=== PATIENT | male | born 1985 ===

== ENCOUNTER 2023-01-31 09:10 | Day surgery (SDC) | payer OTHER, SELFPAY ==
--- NOTE | 2023-01-30 22:22 | W.PM.HP.N ---
Date of service: 01/31/23 Time of Service: 10:09 Assessment and Plan Assessment and plan (1) Drug-induced constipation with proper administration: Status: Acute (2) Right inguinal hernia: Status: Acute (3) Adjustment disorder with depressed mood: (4) Opioid use disorder: (5) PTSD (post-traumatic stress disorder): Assessment and plan: I discussed the nature of inguinal hernias with the pt and how they form, and consequences of incarceration.? We discussed the warning signs of incarcerations (Severe pain/hardness and inability to reduce the hernia/vomiting/redness and fever) ?and when/how to seek medical attention (our office/PCP or ED).? ?I discussed the surgery in detail and the complications related to the surgery and the anesthesia.? I do recommend that the pt have a nerve block for postop pain control.? We also discussed multi-modality pain management.? Pt. expressed understanding; all questions were answered to the patient satisfaction and they do wish to proceed with surgery.? Risks of the surgery include but are not limited to:Bleeding/infection/pneumonia/damage to blood vessels or bladder or?bowels/blood clots or PE/chronic pain/urinary retention/chronic numbness/reoccurrence/reaction to mesh requiring removal/damage to testicle or sterility/complications of anesthesia.?We also discussed the possibility of postop urinary retention or bruising. ?The procedure will be done with abx and under sterile conditions. This is an outpt day surgery.? Arrangements will be made with the [facility] for surgery. (3) Opioid use disorder: Chronic Suboxone therapy (4) Adjustment disorder with depressed mood: (5) Drug-induced constipation with proper administration: Plan - Senna twice daily/Colace twice daily.? Increase MiraLAX twice daily and change Colace to Dulcolax. ? Consider using naloxegol as a rescue agent to avoid straining.? If he is straining to move his bowels after his hernia repair he will blow out his hernia repair History of Present Illness Narrative: Today 01/31 No changes in medications or health status. Patient is on Suboxone for chronic opioid abuse. Patient is still incarcerated. He has not had any pain or difficulty with hernia. Patient states his bowels are more regular. The site is marked. All questions were answered to the patient's satisfaction. RN: Pt here with [facility] for [facility] that he has had for over a year, today he denies pain, states only bothers with lifting. Referral notes reviewed.? Patient was recently in the [place] ER on 10/13/2022 with complaints of right lower quadrant pain.? He does have a known moderate-sized right inguinal hernia.? The hernia was easily reduced by ER staff.? He did have a CT scan which shows fluid-filled dilated small bowel with gradual transition point within the right lower quadrant and trace abdominal fluid.? Patient is not in a position to be doing any strenuous activity or her or heavy lifting.? He does admit to having to strain to move his bowels ? Now that he is on Suboxone.? The hernia was present prior to incarceration. Patient has been having constipation from subxone.? He is on daily MiraLAX and Colace 100 mg twice daily, and senna twice daily .? He still says he has constipation and straining to go to the bathroom.? We do need to get this remedied prior to any hernia repairs, otherwise if he is straining to go to the bathroom the repair would be unsuccessful smoker- 1ppd DM- no NC/CVA- no etoh- no pshx ear surgery and finger surgery anaesthesia- no comp Review of Systems All systems reviewed & are unremarkable except as noted in HPI and below PFSH All Active Problems Drug-induced constipation with proper administration (Acute) Right inguinal hernia (Acute) Medical History Adjustment disorder with depressed mood Opioid use disorder PTSD (post-traumatic stress disorder) Social History Smoking/Tobacco Use Status: Never Smoking risk assessment performed?: Yes Alcohol Intake: former Substance use type: former substance user Details: 01/31/23: 16mg suboxone at 08:45am Housing: other Additional Social history: Corrections Meds Allergies and Home Medications Allergies Allergy/AdvReac Type Severity Reaction Status Date / Time No Known Allergies Allergy Verified 01/31/23 09:49 Home Medications Medication Instructions Recorded Confirmed Type buprenorphine 8 mg-naloxone 2 mg 2 film buccal DAILY 12/08/22 01/31/23 History sublingual film (Suboxone) docusate sodium 100 mg capsule 100 mg PO BID 12/08/22 01/31/23 History ibuprofen 200 mg capsule 600 mg PO Q6H PRN 12/08/22 01/31/23 History mirtazapine 30 mg tablet 30 mg PO DAILY 12/08/22 01/31/23 History sennosides 8.6 mg capsule (senna) 8.6 mg PO BID 12/08/22 01/31/23 History polyethylene glycol 3350 17 17 g PO BID #510 grams 12/12/22 01/31/23 Rx gram/dose oral powder (Miralax) Exam Narrative Exam Narrative: PHYSICAL EXAM GENERAL APPEARANCE: Alert, healthy appearance, oriented, x 3,? in no acute distress HYDRATION: Well hydrated HEAD, EYES, EARS, NECK, THROAT: Head is normocephalic, pupils equal, round, reactive to light and accommodation, ocular movement intact, sclera clear and no jaundice. ?Dentition intact. No sore throat.? No jaw pain. No thrush When she did LUNGS: normal respiration/normal chest excursion. ?Clear to auscultation bilaterally. ?No wheeze. ?HEART: Regular rate and rhythm. no murmurs ? ABDOMEN: soft and non-tender to palpation.? Normal bowel sounds.? Time Spent Time spent with Patient: <40 minutes Time was spent: preparing to see the patient(eg.review tests), obtaining and/or reviewing separately otained hiistory, ordering medications,tests, procedures, referring, communicating with other health manager home healthcare, indepentently interpreting results, counseling the patient and care coordination
--- NOTE | 2023-01-30 22:25 | W.PM.OP ---
Date of service: 01/31/23 Time of Service: 12:11 Operative Note Operative Note DATE OF PROCEDURE: 01/31/23 PRE-OP DIAGNOSIS: [facility] POST-OP DIAGNOSIS: same (indirect) PROCEDURE: Open right inguinal hernia with mesh SURGEON: Giulia High ASSISTING SURGEON: Naila Ayala ANESTHESIA TYPE: Local By Surgeon, General:No Airway and Primary Nerve Block Refer to Anesthesia Record ESTIMATED BLOOD LOSS: 5 PATHOLOGY: none sent COMPLICATIONS: None Patient was transported to: PACU Patient's condition: stable Procedure Description: INDICATIONS: The pt is here today for surgery regarding symptomatic --- inguinal hernia that has failed outpatient conservative medical management and he is here today for repair. Informed consent was obtained, explaining risks and benefits of the procedure including but not limited to bleeding, infection, pneumonia, blood clots, chronic pain, chronic numbness, damage to testicle resulting in removal, recurrence of hernia, reaction to Mesh necessitating removal, and other unforetold complications, and complications of anesthesia-which were addressed by the COMMUNICATION ASSISTANT. The patient is marked in preOp prior to the procedure DESCRIPTION OF PROCEDURE:? The pt is then brought to the operative room suite. Anesthesia was administered per the Department of Anesthesia. ?A nerve block was performed by anesthesia under US guidance. The patient was prepped and draped in the usual sterile fashion using ChloraPrep scrub solution. Pause for the cause was done. He did receive preop IV antibiotics, and 30 mL of .25% Marcaine w/ epinephrine was used for local anesthetization. A #12 blade was used to make an incision over the external ring. Electrocautery used to provide hemostasis and dissect down to the fascia. The fascia was pretty much obliterated and there was nothing to open. The cord is elevated. The nerve was not identified. There is a small cord lipomas.? Electro-cautery is used to provide hemostasis. A Ranjana drain was placed around the cord to assist in mobilization. The cord was explored. ?There was is large hernia sac on the cord. There is no direct hernia pushing through the floor. The hernia sac is dissected off the cord using a combination of blunt dissection and electrocautery.? Electrocautery is used to provide hemostasis.?? There are no contents within the hernia sac.? The hernia sac is than inverted and returned to the abdominal cavity.? A XL size plug is than inserted into the defect through the internal ring, and over sewn to tighten up the ring with 2-0 vicryl.? Please see RN notes from Lot number of the [employer] mesh patch/plug.? The cord structures are still able to freely move through the ring itself.? The patch was then placed onto the floor, and using 2-0 Vicryl, sewn into the pubic tubercle and the shelving portions of the inguinal ligament, in the standard Lichenstein fashion.? ?The tails of the mesh are brought around the cord, sewn together w/ 2-0 Vicryl, and tucked under the external oblique.? The wound was copiously irrigated. There was no bleeding noted. The drain was removed. All structures are returned to normal anatomical position. The nerve is not sewn into the mesh, nor caught up in any sutures. The external oblique is re-approximated using 2-0 vicryl in a running fashion. ?Deep tissue was approximated with 3-0 Vicryl in a running fashion, and skin was approximated with 4-0 Monocryl in a running subcuticular fashion. Skin glue and sterile dressings are applied. The patient tolerated the procedure without complications to recovery in stable condition. GIULIA HIGH, DO
--- NOTE | 2023-01-30 22:26 | PDOC.DSDIS_ITS ---
Date of service: 01/31/23 Time of Service: 12:16 Discharge Plan Disposition Patient Disposition: Home Condition: Good Discharge Details Reason For Visit: Right inguinal hernia repair Attending Provider: Giulia Xiao Primary Care Provider: Unknown,Unknown Home Meds and New Rx's Prescriptions: New methocarbamol 750 mg tablet 750 mg PO QID PRNQty: 30 0RF Continued polyethylene glycol 3350 [Miralax] 17 gram/dose powder 17 g PO BID Qty: 510 0RF buprenorphine-naloxone [Suboxone] 8-2 mg film 2 film buccal DAILY Rx Instructions: place 1 film on inside of (each) cheek ibuprofen 200 mg capsule 600 mg PO Q6H PRN mirtazapine 30 mg tablet 30 mg PO DAILY senna 8.6 mg capsule 8.6 mg PO BID docusate sodium 100 mg capsule 100 mg PO BID Discharge Instructions Additional Instructions: Dr. Xiao HERNIA REPAIR ? POSTOPERATIVE INSTRUCTIONS Patients who have this type of surgery can usually be expected to return to work within two weeks and have minimal amounts of discomfort. ? ACTIVITY: The day of surgery should be spent resting. However, you can be up for short periods of time, I.E., going to the bathroom or kitchen. Avoid lifting or straining. On the day following surgery, you can be up and about as desired. ? LIFTING: Restrict your lifting to no more than five (5) pounds for two weeks after surgery. ??We will decide when you are done with restrictions and when you can return to work, at your follow-up appointment.? No sexual activity for two weeks.? ? DIET: There are no dietary restrictions following surgery. However, you may want to start with small amounts of liquids to avoid nausea the day of surgery. ? INCISION CARE: You will notice purple skin glue closing the incision.? Do not peel this off- it will wear off on its own.? After 24 hours you may shower. The dressing may be replaced for comfort, but is not necessary. ?An ice bag may be applied to the incision for 72 hours following surgery. ? SIGNS OF INFECTION: It is not unusual to have some black and blue discoloration of the skin around the incision, but also scrotum and penis.? ?It will slowly disappear. If you have any increased redness, drainage, fever (above 100 degrees), please contact your doctor for an examination. ? DISCOMFORT: You may expect to have some mild discomfort at the incision sight. If severe pain develops you should contact your doctor for further instructions. ? URINATION: Patients who have surgery occasionally have problems urinating. If you experience problems and are not able to urinate within 6 hours following your surgery, please call your doctor immediately or go to your nearest Emergency Room for evaluation. ? DRIVING: NO driving for three (3) days after surgery, or if you are still taking narcotic pain medication.? ? MEDICATIONS: Alternate Tylenol 1000mg by mouth every 8 hours and Ibuprofen 600mg every 6 hours. ?Make sure you take ibuprofen with food and not on an empty stomach. ?Take the Tylenol and ibuprofen continuously for the first 72hrs- not just when you have pain.? Use the tramadol for breakthrough pain/pain >7.? Use ICE!?? Twenty minutes on, and then off, continuously for the first 72hours. If you are taking narcotic pain medication, follow the instructions on the label and do not drive. Pain medications can make you very constipated. Make sure you are moving your bowels daily. If not, take Miralax or Milk of Magnesia.?? Anesthesia makes you very constipated.? Take a dose of milk of magnesia the morning after surgery. ? REPORT: Unusual swelling, severe pain, unresolved nausea, signs of infection, or difficulty in urination to your surgeon. Follow up in clinic with Dr. Xiao in 2 weeks.? [phone] Stand Alone Forms: Anesthesia Discharge InstMaritza Petit (DSU) Activity:: See above Remove Dressings/Wound Care:: 24 hours Shower/Bathe:: 24 hours Diet:: See above Discharge Orders Discharge Orders: Discharge Order (Routine); Ordered 01/31/23 Ordered By: Giulia Xiao DS: Diagnosis Discharge Diagnosis (1) Drug-induced constipation with proper administration: Status: Acute (2) Right inguinal hernia: Status: Acute Asessment and Plan: The patient is doing well post-op from their [facility] surgery.? They are having no nausea or vomiting. They are tolerating liquids and a snack. The pt is not having any chest pain or SOB.? Their pain is adequately controlled. They have been able to urinate.? ?HEENT:? no eye pain/drainage/redness/swelling. Mild sore throat ?Cardio- NSR, no chest pain, BP stable- see VS record ?Pulm: no sob or productive cough. No hemoptysis ?Incision- dressing is c/d/i w/ no excessive bleeding or drainage ?I discussed with the patient the findings at the time of surgery and the patient?s progress. ?We reviewed expectations at home; what the patient could expect for recovery time, and in the post-operative period.? We discussed the importance of walking to avoid blood clots and pneumonia.? We discussed and reviewed the patient's post-operative wound care and dressing needs.?? We reviewed their step-reese pain management plan, Rx called to the pharmacy of their choice.? We reviewed activity and limitations-see discharge instructions. We reviewed warning signs, and when to seek medical attention- see d/c instructions.?? Patient was given a postoperative follow-up appointment. Patient verbalized understanding of their postoperative instructions, how do to take care of themselves and their incision, and the pain management plan. Please see discharge instructions.? (3) Adjustment disorder with depressed mood: (4) Opioid use disorder: (5) PTSD (post-traumatic stress disorder):
[2023-01-31] VITALS (9 sets, daily range): BP systolic 106–134; BP diastolic 33–98; PULSE 59–68; RESP 12–18; TEMP 36.7–37; O2SAT 96–97; BMI 23.8
[2023-01-31] MEDS: Gabapentin 300 MG CAP 600 MG PO (09:46)
[2023-01-31] MEDS: Acetaminophen 500 MG TAB 1000 MG PO (09:46)
[2023-01-31] MEDS: Lactated Ringers 1,000 ML 80 ML IV (10:18)
--- NOTE | 2023-01-31 10:30 | W.ANESPRE ---
General Info Date of Service Date Performed: 01/31/23 Height: 6 ft Weight: 79.832 kg Body Mass Index (BMI): 23.8 Surgical Procedure: Operation Date: 01/31/23 10:25 Proposed Procedure Side Surgeon p Herniorrhaphy Inguinal w/Mesh Right Giulia Xiao DO Meds Allergies and Home Medications Allergies Allergy/AdvReac Type Severity Reaction Status Date / Time No Known Allergies Allergy Verified 01/31/23 09:49 Home Medication Medication Instructions Recorded buprenorphine 8 mg-naloxone 2 mg 2 film buccal DAILY 12/08/22 sublingual film (Suboxone) docusate sodium 100 mg capsule 100 mg PO BID 12/08/22 ibuprofen 200 mg capsule 600 mg PO Q6H PRN 12/08/22 mirtazapine 30 mg tablet 30 mg PO DAILY 12/08/22 sennosides 8.6 mg capsule (senna) 8.6 mg PO BID 12/08/22 polyethylene glycol 3350 17 17 g PO BID #510 grams 12/12/22 gram/dose oral powder (Miralax) Current Visit Medications: Current Medications Generic Name Dose Route Start Last Admin Trade Name Freq PRN Reason Stop Dose Admin Acetaminophen 1,000 mg 01/31/23 06:00 01/31/23 09:46 Acetaminophen 500 Mg Tab PO 01/31/23 16:00 1,000 mg PREOP TONEY Administration Gabapentin 600 mg 01/31/23 06:00 01/31/23 09:46 Gabapentin 300 Mg Cap PO 01/31/23 16:00 600 mg PREOP TONEY Administration Ringer's Solution 1,000 mls @ 80 mls/hr 01/31/23 06:00 01/31/23 10:18 IV 03/01/23 23:59 80 mls/hr INFUSION TONEY Administration Cefazolin Sodium/Dextrose 2 gm in 50 mls @ 100 mls/hr 01/31/23 06:00 Ancef Duplex IVPB 01/31/23 16:00 PREOP TONEY Ondansetron HCl 4 mg/ Sodium 52 mls @ 200 mls/hr 01/31/23 04:12 Chloride IVPB 03/02/23 04:11 Q6H PRN PRN IV Miscellaneous Supplies 1 each 01/31/23 06:00 Iv Access IV 03/01/23 23:59 DIRECTED TONEY Morphine Sulfate 2 mg 01/31/23 04:12 Morphine 4 Mg/Ml Syr IVP 03/02/23 04:11 Q1H PRN PRN Sodium Chloride 0 ml 01/31/23 06:00 Normal Saline Flush 10 Ml Syr IV 03/01/23 23:59 PRN PRN Sodium Chloride 0 ml 01/31/23 06:00 Normal Saline 10 Ml Vial IJ 03/01/23 23:59 DIRECTED PRN Sterile Water 0 ml 01/31/23 06:00 Water,Injection,Sterile 10 Ml Vial IJ 03/01/23 23:59 DIRECTED PRN Tramadol HCl 50 mg 01/31/23 04:12 Tramadol 50 Mg Tab PO 03/02/23 04:11 Q6H PRN PRN Pain PFSH Active Problems Active Problems: Problem Status Onset Code Drug-induced constipation with proper administration K59.03 Right inguinal hernia K40.90 Medical History Medical History Adjustment disorder with depressed mood Opioid use disorder PTSD (post-traumatic stress disorder) Medical History Comments:: note: 01/31/23 pt weihght on standing scale is 90.7kg with cuffs, ankle chain and belly chain. Tobacco Smoking/Tobacco Use Status: Never Alcohol Alcohol Intake: former Substance Use Substance use type: former substance user Details: 01/31/23: 16mg suboxone at 08:45am Vital Signs and Lab Results Vital Signs Most Recent Vital Signs in EMR: Most Recent Vital Signs Temp Pulse Resp BP Pulse Ox 36.7 C 66 16 119/98 H 96 01/31/23 09:40 01/31/23 09:40 01/31/23 09:40 01/31/23 09:40 01/31/23 09:40 Lab Results Blood Type / Crossmatch: No Data to Display Complete Blood Count: No Data to Display Complete Metabolic Panel: No Data to Display Liver Function Panel: No Data to Display Coagulation Panel: No Data to Display Cardiac Panel: No Data to Display Arterial Blood Gas: No Data to Display Venous Blood Gas: No Data to Display Pancreas Panel: No Data to Display Thyroid Panel: No Data to Display Infectious Disease: No Data to Display Blood Cultures: No Data to Display Toxicology Panel: No Data to Display Anesthesia Assessment and Plan Anesthesia History Personal History: No History of Anesthesia Complications Family History: Family History Unknown Exercise Tolerance Exercise Tolerance: Metabolic Equivalents>4 Pertinent Negatives Pertinent Negatives: No Symptoms of GERD Cardiac & Pulmonary Exam Cardiac Exam: Normal S1/S2 Heart Sounds Pulmonary Exam: Clear Bilateral Breath Sounds Implantable Cardiac Device Does patient have a Pacemaker or an ICD?: No Airway Exam Known Difficult Airway: No Mallampati Class: 2 Mouth Opening: Normal (> 3cm) Thyromental Distance: Greater than 3 cm Neck Range of Motion: Full ROM Neck Circumference: Normal Teeth Condition: Normal Dentition ASA Classification ASA Score: ASA 2 Emergency Case?: No NPO Status NPO Status: NPO Clears >2 hours, Solids >8 hours Anesthesia Plan Resuscitation Status: Full Code Anesthesia Technique: General Anesthesia Airway Planned: LMA Monitors Used: Standard Monitors
[2023-01-31] MEDS: ceFAZolin 2 GM/50 ML BAG IVPB (10:45)
--- NOTE | 2023-01-31 11:10 | W.ANESNERVE ---
Nerve Block Single Injection Procedure Date and Time Date Performed: 01/31/23 Procedure Start: 10:49 Location Where Procedure Performed Procedure Location: Operating Room Procedure Stop: 10:58 Reason Performed: Postoperative Analgesia Requesting Provider: Giulia Xiao Timeout Performed Timeout Performed: Yes Monitoring Used ECG, Blood Pressure, SpO2 and ETCO2 Sterility Sterility: Hand Hygiene, Surgical Cap, Surgical Mask, Sterile Gloves, Eye Protection and Chlorhexidine Sedation Given During Procedure Sedation Given (Indicate Dose Given): No Sedation given Patient Mental Status Patient Mental Status: Performed under general anesthesia Nerve Block 1st Nerve Block: Laterality: Right Block Type: TAP Unilateral (Right Side) Ultrasound Image Saved?: Yes Needle / Catheter Used: 100mm SonoPlex II Local Anesthetic Bolus (Indicate Dose Given): None, Bupivacaine 0.25% Dose:: 0.25%/15cc (37.5mg) and Exparel Dose:: 1.33%/10cc (133mg) Additives (Indicate Dose Given): Epinephrine to make 1:200,000 (5mcg/ml) Dose:: 75mcg Ultrasound: Sterile probe cover and gel used Nerve Stimulator: Not Used Paresthesia: None Procedure Tolerated: No Complications and Patient tolerated well Procedure Outcome: Successful Performed By: Kendell Fenton
--- NOTE | 2023-01-31 13:57 | W.ANESPOSTOP ---
Postoperative Evaluation Date, Time and Location Date Performed: 01/31/23 Time Performed: 13:57 Patient Location: Day Surgery Unit Vital Signs Most Recent Imported Vital Signs: Most Recent Vital Signs Temp Pulse Resp BP Pulse Ox 36.8 C 66 18 126/76 97 01/31/23 13:40 01/31/23 13:40 01/31/23 13:40 01/31/23 13:40 01/31/23 13:40 Pain Score Most Recent Pain Score: Most Recent Pain Score Pain Level 1 01/31/23 13:40 Assessment Mental Status: Awake (Alert & Oriented to Patient Baseline) Airway and Respiratory Function: Patent airway with normal (patient baseline) respiratory exam Cardiovascular Function: Hemodynamically Stable Hydration Status: Adequately Hydrated Nausea & Vomiting: No Nausea or Vomiting Pain: Pt. Denies Any Pain Peripheral Nerve Block: Regional nerve block not resolved at time of post operative discharge
[2023-01-31] MEDS: traMADol 50 MG TAB PO (14:10)
== END 2023-01-31 14:15 | disposition home or self-care (01) ==
PROVIDERS: Visit Provider Surgery
PROC: (CPT 49505; principal; 2023-01-31 10:15)
DX: K40.90 Unilateral inguinal hernia, without obstruction or gangrene, not specified as recurrent; F11.90 Opioid use, unspecified, uncomplicated; F43.10 Post-traumatic stress disorder, unspecified
CPT/HCPCS: 49505; 76942; C1781; J0171; J0690; J1100; J2001; J2250; J2405; J2704

== ENCOUNTER 2023-03-14 10:27 | Emergency (ER) | payer OTHER, SELFPAY ==
[2023-03-14 10:31] VITALS: BP 137/68; PULSE 63; RESP 18; TEMP 37.3; O2SAT 97
--- NOTE | 2023-03-14 10:45 | DI.US_ITS ---
Exam(s) US HERNIA EXAM: US HERNIA CLINICAL HISTORY: pain/ bulge s/p inguinal hernia repair. TECHNIQUE: Ultrasound was performed using standard protocol. COMPARISON: US POCUS EXAM from 01/31/2023 FINDINGS: Dedicated ultrasound examination of the right inguinal canal region (which is the area of clinical co ncern) does not reveal evidence of an obvious hernia sac at this time. Valsalva maneuver also did no t elicit obvious findings. IMPRESSION: No evidence of hernia sac in the right inguinal region. DATA REPOSITORY:
[2023-03-14 10:47] LABS: Abs Immature Grans 0.03 10^3/uL (0.0-0.06); Absolute Basophil Count 0.05 10^3/uL (0.0-0.2); Absolute Eosinophil Count 0.25 10^3/uL (0.0-0.7); Absolute Lymphocyte Count 3.51 10^3/uL (1.2-3.4); Absolute Monocyte Count 0.63 10^3/uL (0.1-0.8); Absolute Neutrophil Count 3.05 10^3/uL (1.2-6.7); Basophils % 0.7; Eosinophils % 3.3; HCT 49.6 % (40.0-50.0); Immature Grans % 0.4; Lymphocytes % 46.7; MCHC 34.3 % (32.0-36.0); MCV 82 fL (80-95); MPV 9.3 fL (8.0-11.0); Monocytes % 8.4; Neutrophils % 40.5; Platelet Count 261 10^3/uL (130-400); RDW 12.7 % (11.8-14.1); RDW-SD 37.7 fL; WBC 7.52 10^3/uL (4.4-10.8)
[2023-03-14] MEDS: oxyCODONE 10 MG TAB PO (10:53)
--- NOTE | 2023-03-14 10:55 | ED.GENADUL_ITS ---
Discharge Plan Disposition Patient Disposition: Home Discharge Details Clinical Impression: Post-op pain Primary Care Provider: Unknown,Unknown ED Provider: Geovanna Sarah Home Meds and New Rx's Prescriptions: New lidocaine [Lidoderm] 5 % adhesive patch,medicated 1 patch topical DAILY Qty: 15 0RF Rx Instructions: leave on most painful area for up to 12 hrs Continued polyethylene glycol 3350 [Miralax] 17 gram/dose powder 17 g PO BID Qty: 510 0RF mirtazapine 30 mg tablet 30 mg PO DAILY senna 8.6 mg capsule 8.6 mg PO BID docusate sodium 100 mg capsule 100 mg PO BID acetaminophen 500 mg tablet 1,000 mg PO BID PRN clotrimazole 1 % cream 1 applic topical BID buprenorphine HCl 8 mg tablet, sublingual 16 mg sublingual DAILY methocarbamol 750 mg tablet 750 mg PO BID PRN Discharge Instructions Additional Instructions: May apply Lidoderm patch, 12 hours on, 12 hours off, Tylenol 650 every 4-6 hours as needed for discomfort, refrain from lifting greater than 5 pounds and straining with bowel movements today your symptoms have improved Recommend following up with Dr. Xiao should you have persistent pain greater than 2 to 3 days in the area Recommend continuing your stool softeners so that you do not have to strain with bowel movement and returning immediately should you have fever, chills, worsening, or's persistent pain Referrals: Giulia Xiao DO [OSTEOPATHIC DOCTOR] - 1 week Discharge Data Discharge Date/Time-TO BE ENTERED AT DEPARTURE: 03/14/23 12:13 Medical Decision Making This 37-year-old male presents with pain to the right inguinal region after having a bowel movement today. He states he felt a popping sensation over his inguinal hernia site where he had mesh placed recently He denies any blood in stool or changes in ability to pass urine Patient is afebrile and nontoxic, he has a benign exam, there is no obvious inguinal hernia on reassessment, no erythema or wound dehiscence Ultrasound per radiology interpretation and my review does not show evidence of a hernia Diagnostic blood work does not show evidence of acute abnormality Return precautions reviewed and patient expressed understanding HPI General Date/Time Provider Initiated Documentation: 03/14/23 10:28 . HPI Narrative: This 37-year-old male presents with report of pain and bulging status post inguinal hernia repair approximately 5 weeks ago. Was having a bowel movement when the pain started. Denies fever or chills or change in urination. Related Data Home Medications Medication Instructions Recorded Confirmed docusate sodium 100 mg capsule 100 mg PO BID 12/08/22 03/14/23 mirtazapine 30 mg tablet 30 mg PO DAILY 12/08/22 03/14/23 sennosides 8.6 mg capsule (senna) 8.6 mg PO BID 12/08/22 03/14/23 polyethylene glycol 3350 17 17 g PO BID #510 grams 12/12/22 03/14/23 gram/dose oral powder (Miralax) acetaminophen 500 mg tablet 1,000 mg PO BID PRN 03/14/23 03/14/23 buprenorphine HCl 8 mg sublingual 16 mg sublingual DAILY 03/14/23 03/14/23 tablet clotrimazole 1 % topical cream 1 applic topical BID 03/14/23 03/14/23 lidocaine 5 % topical patch 1 patch topical DAILY #15 ea 03/14/23 (Lidoderm) methocarbamol 750 mg tablet 750 mg PO BID PRN 03/14/23 03/14/23 Previous Rx's Medication Instructions Recorded polyethylene glycol 3350 17 17 g PO BID #510 grams 12/12/22 gram/dose oral powder (Miralax) lidocaine 5 % topical patch 1 patch topical DAILY #15 ea 03/14/23 (Lidoderm) Allergies Allergy/AdvReac Type Severity Reaction Status Date / Time No Known Allergies Allergy Verified 03/14/23 10:34 General Stated Complaint: Abd Prob MARTA: 3 PFSH All Active Problems (Updated 03/14/23 @ 11:52 by WALDO Medrano) Post-op pain (Acute) Drug-induced constipation with proper administration (Acute) Medical History (Updated 03/14/23 @ 11:52 by WALDO Medrano) Right inguinal pain Opioid use disorder Adjustment disorder with depressed mood PTSD (post-traumatic stress disorder) Surgical History (Updated 02/14/23 @ 12:04 by Giulia Xiao DO) History of right inguinal hernia (~01/2023) Social History Smoking/Tobacco Use Status: Never Smoking risk assessment performed?: Yes Alcohol Intake: former Substance use type: former substance user Details: 01/31/23: 16mg suboxone at 08:45am Housing: other Additional Social history: [employer] Vital Signs Vital signs: Vital Signs Temperature 37.3 C 03/14/23 10:31 Pulse 63 03/14/23 10:31 Respiratory Rate 18 03/14/23 10:31 Blood Pressure 137/68 03/14/23 10:31 Pulse Oximetry 97 03/14/23 10:31 Temperature 37.3 C 03/14/23 10:31 Temperature Source Skin 03/14/23 10:31 Pulse 63 03/14/23 10:31 Respiratory Rate 18 03/14/23 10:31 Respiratory Effort Normal, Non-Labored 03/14/23 10:34 Blood Pressure 137/68 03/14/23 10:31 Blood Pressure Position Sitting 03/14/23 10:31 Pulse Oximetry 97 03/14/23 10:31 Oxygen Delivery Method Room Air 03/14/23 10:31 Oxygen Flow Rate 0 03/14/23 10:31 Pain Level 5 03/14/23 10:53
[2023-03-14 11:00] LABS: RBC 6.07 10^6/uL (4.36-5.78)
[2023-03-14 11:06] LABS: ALT 42 U/L (16-63); AST 27 U/L (15-37); Albumin 4.1 g/dL (3.4-5.0); Alkaline Phosphatase 59 U/L (46-116); Anion Gap 5.3 mmol/L (3-11); BUN 13 mg/dL (7-18); Bilirubin, Total 0.9 mg/dL (0.2-1.0); CO2 30.7 mmol/L (21.0-32.0); Calcium 8.9 mg/dL (8.5-10.1); Chloride 101 mmol/L (98-107); Estimated GFR 100.03 (mL/min/1.73m2); Glucose 90 mg/dL (74-106); Lipase 29 U/L (16-77); Potassium 4.2 mmol/L (3.5-5.1); Sodium 137 mmol/L (136-145); Total Protein 7.9 g/dL (6.4-8.2)
[2023-03-14] MEDS: Lidocaine 5% Patch 1 PATCH TP (12:02)
[2023-03-14 12:03] VITALS: BP 125/73; PULSE 61; RESP 18; O2SAT 96
== END 2023-03-14 12:13 | disposition home or self-care (01) ==
LOC: ER 12:07
PROVIDERS: Emergency Provider Physician Assistant
DX: R10.30 Lower abdominal pain, unspecified (principal); G89.18 Other acute postprocedural pain
CPT/HCPCS: 76857; 80053; 83690; 99284; 85025; 99283